=== PATIENT | female | born 1960 | race Caucasian/White ===

== ENCOUNTER 2016-05-09 09:35 | Outpatient (CLI) | payer MEDICARE, MEDICAID ==
[~2016-05-09 09:35] MED LIST: ADVAIR 250/5028 PUFF IN; ALLEGRA60 MG PO; CELEXA10 MG; HYZAAR 50-12.51 EACH PO; LAMICTAL 100 M100 MG PO; LATUDA40 MG; LEVAQUIN500 MG PO; LITHIUM CARBON450 MG PO; LITHIUM PO; METFORMIN HCL1000 MG PO; NEURONTIN 100100 MG PO; NEXIUM40 MG; ONGLIZA PO; OXYGEN; PRAVASTATIN 40M40 MG PO; PREDNISONE 20MG20 MG PO; PREMPRO 0.625 M1 TAB; PROZAC 20MG CAP20 MG PO; RISPERDAL CONST50 MG; RISPERDAL3 MG; RITALIN 5MG TABL5 MG PO; SINGULAIR10 MG; SPIRIVA HA1 PUFF/INH; SYNTHROID 0.00.05 MG; TOPAMAX PO; TOPIRAMATE 25MG25 MG PO
[2016-05-09 10:05] VITALS: BP 146/82
[2016-06-06] MEDS ORDERED: METHOTREXATE 22.5 MG PO (10:20)
== END 2016-05-09 10:30 | disposition home or self-care (01) ==
LOC: COP 09:35
DX: J45.21 Mild intermittent asthma with (acute) exacerbation (principal)
CPT/HCPCS: J2357

== ENCOUNTER → 2016-09-18 | Outpatient (CLI) | payer MEDICARE, MEDICAID ==
[~2016-09-18] MED LIST changes: +METHOTREXATE 22.5 MG PO
== END ==
LOC: RAD 13:26
DX: R92.8 Other abnormal and inconclusive findings on diagnostic imaging of breast (principal); R92.2 Inconclusive mammogram
CPT/HCPCS: G0204

== ENCOUNTER 2016-10-03 09:45 | Outpatient (CLI) | payer MEDICARE, MEDICAID ==
[2016-10-03 10:05] VITALS: BP 146/81
== END 2016-10-03 10:25 | disposition home or self-care (01) ==
LOC: COP 09:45
DX: J45.21 Mild intermittent asthma with (acute) exacerbation (principal)
CPT/HCPCS: J2357

== ENCOUNTER 2016-10-06 11:01 | Day surgery (SDC) | payer MEDICARE, MEDICAID ==
--- NOTE | 2016-10-06 13:24 | Operative Note ---
Upper GI Endoscopy Procedure date: 10/06/16 Date of : 62 Procedure:Upper GI Endoscopy Esophagogastroduodenoscopy with cold biopsies Indications: Mrs. Bedolla is a 56-year-old female with epigastric abdominal pain, nausea and bloating. The pain radiates across upper abdomen into the LEFT side. She has some early satiety. This is been going on since the first part of the year. She is on Nexium for acid reflux that reports no significant reflux or dysphagia. She has regular bowel function. She had a cholecystectomy years ago. She reports no rectal bleeding or melena. She reports no weight loss. She has no family history of gastric cancer or colon cancer. The patient has had no recent imaging studies. EGD is performed for further evaluation of her epigastric pain and dyspepsia. Performing Provider: Micah Spears MD Referring Provider: Carmen CAMARGO Sedation: Fentanyl 100 mg IV/Versed 5 mg IV Procedure: Prior to the procedure, a history and physical exam was performed, and patients medications and allergies were reviewed. The risks and benefits of the procedure and the sedation options and risks were discussed with the patient. All questions were answered and informed consent was obtained. The patient was brought to the procedure room. Patient identification and proposed procedure were verified by the physician and the nurse. The patient was placed in a left lateral decubitus position and the scope was passed under direct vision. Throughout the procedure, the patient's blood pressure, pulse, and oxygen saturations were monitored continuously. The endoscope was introduced through the mouth, and advanced to the second part of duodenum. The upper GI endoscopy was accomplished without difficulty. The patient tolerated the procedure well. Findings: The scope was passed directly into the upper esophagus and advanced to the third portion of the duodenum. The post bulbar duodenum and duodenal bulb were normal with normal mucosa and conniventes. The scope was withdrawn through a normal duodenal bulb and pylorus into the stomach. There was bile reflux with linear erythema in the antrum consistent with linear reactive gastritis. The remainder of the antrum, body and fundus of the stomach were grossly normal. Upon retroflexion there was no hiatal hernia. 2 biopsies were taken in the antrum and along the lesser curvature for histology. The scope was then withdrawn into the esophagus. There was a single tongue of salmon-colored mucosa that was biopsied to rule out short segment Hobbs's esophagus. There was no evidence of reflux esophagitis or Schatzki's ring. The remainder of the esophageal mucosa was normal. Immediate complications: None EBL (ml): 0 Impression: 1. Nonerosive gastroesophageal reflux disease with possible tongue of short segment Hobbs's esophagus 2. Mild linear reactive gastritis Recommendations: I do feel that the patient has functional dyspepsia. This is most likely related to obstipation and some visceral sensitivity. I will follow-up the biopsies. If this persists, would consider an imaging study of the abdomen. at [id number]
[2016-10-06 15:01] VITALS: BP 164/89
== END 2016-10-06 14:07 | disposition home or self-care (01) ==
LOC: SDC 11:01
PROVIDERS: Internal Medicine Gastroenterology
PROC: 0DB68ZX Excision of Stomach, Via Natural or Artificial Opening Endoscopic, Diagnostic (ICD-10-PCS; principal; 2016-10-06 12:00)
DX: K21.9 Gastro-esophageal reflux disease without esophagitis (principal); K22.70 Barrett's esophagus without dysplasia; K29.70 Gastritis, unspecified, without bleeding; R10.9 Unspecified abdominal pain

== ENCOUNTER 2016-11-07 09:49 | Outpatient (CLI) | payer MEDICARE, MEDICAID ==
[2016-11-07 10:20] VITALS: BP 151/80
== END 2016-11-07 10:20 | disposition home or self-care (01) ==
LOC: COP 09:49
DX: J45.21 Mild intermittent asthma with (acute) exacerbation (principal)
CPT/HCPCS: J2357

== ENCOUNTER → 2016-11-29 | Outpatient (CLI) | payer MEDICARE, MEDICAID ==
[2016-11-29 15:53] LABS: BUN 7 mg/dL (7-18)
[2016-11-29 15:54] LABS: GFR (ESTIMATED) 74 ML/MIN (59-)
== END ==
LOC: CARL-LAB 08:43
PROVIDERS: Nurse Practitioner Psychiatric/Mental Health
DX: F25.9 Schizoaffective disorder, unspecified (principal); Z51.81 Encounter for therapeutic drug level monitoring

== ENCOUNTER 2017-01-02 09:45 | Outpatient (CLI) | payer MEDICARE, MEDICAID ==
[2017-01-02 10:00] VITALS: BP 151/77
== END 2017-01-02 10:19 | disposition home or self-care (01) ==
LOC: COP 09:45
DX: J45.21 Mild intermittent asthma with (acute) exacerbation (principal)
CPT/HCPCS: J2357

== ENCOUNTER → 2017-01-10 | Outpatient (CLI) | payer MEDICARE, MEDICAID ==
--- NOTE | 2017-01-16 08:53 | RADIOLOGY REPORT PS360 ---
STEREOTATIC BX-W/CLIP-LT DIG MAMM-DX UNI-LT W/CAD, COMPARISON: 10/19/2016 INDICATION: Abnormal mammogram, left breast nodule ORDERING PHYSICIAN: JUANITO BULL APRN PATIENT AGE: 56 years TECHNIQUE: Following obtaining informed consent under aseptic conditions using standard stereotactic guidance the nodule was located. Local anesthesia was obtained with 1% buffered lidocaine and deeper anesthesia with buffered lidocaine mixed with epinephrine. Dermotomy was performed and mammotome needle inserted. Multiple cores were obtained with appropriate defect in the area of interest. A nonferromagnetic clip was then placed and deemed to be in satisfactory position. Post biopsy mammogram: Biopsy defect noted with clip in place at the area of interest of the previous nodule. Post biopsy changes. Pathology: Partially sampled reactive lymph node with fibrocystic changes. No atypia or malignancy IMPRESSION: Successful stereotactic directed biopsy left breast showing benign findings. BI-RADS CATEGORY: 2_Benign RECOMMENDED FOLLOWUP: 6 month mammographic follow-up per routine protocol (A letter has been sent to the patient regarding results of the study.)
== END ==
LOC: RAD 12-13 11:00
PROC: 0H9U3ZX Drainage of Left Breast, Percutaneous Approach, Diagnostic (ICD-10-PCS; principal; 2017-01-10)
DX: N63.20 Unspecified lump in the left breast, unspecified quadrant (principal)
CPT/HCPCS: G0206-LT

== ENCOUNTER 2017-01-30 09:25 | Outpatient (CLI) | payer MEDICARE, MEDICAID ==
[2017-01-30 10:00] VITALS: BP 169/76
== END 2017-01-30 10:20 | disposition home or self-care (01) ==
LOC: COP 09:25
DX: J45.21 Mild intermittent asthma with (acute) exacerbation (principal)
CPT/HCPCS: J2357

== ENCOUNTER 2017-02-27 09:30 | Outpatient (CLI) | payer MEDICARE, MEDICAID ==
[2017-02-27 10:14] VITALS: BP 143/82
== END 2017-02-27 10:30 | disposition home or self-care (01) ==
LOC: COP 09:30
DX: J45.21 Mild intermittent asthma with (acute) exacerbation (principal)
CPT/HCPCS: J2357